=== PATIENT | female | born 1975 | race Caucasian/White ===

== ENCOUNTER 2016-10-12 08:33 | Outpatient (CLI) ==
[2013-08-04 14:28] VITALS: BMI 24.7
[2016-10-12 09:05] LABS: BASOPHILS % (AUTO) 0.6 % (0.0-3.0); EOSINOPHILS # (AUTO) 0.3 K/ul (0.0-0.7); EOSINOPHILS % (AUTO) 4.2 % (0.0-7.0); HEMATOCRIT 39.4 % (37.0-47.0); HEMOGLOBIN 13.8 g/dl (12.0-16.0); IMMATURE GRANULOCYTE % (AUTO) 0.2 % (0.0-5.0); LYMPHOCYTES # (AUTO) 2.9 K/uL (0.60-3.4); LYMPHOCYTES % (AUTO) 43.4 (10.0-50.0); MEAN CORPUSCULAR HEMOGLOBIN 30.8 pg (27.0-31.0); MEAN CORPUSCULAR VOLUME 87.9 fl (81.0-99.0); MONOCYTES # (AUTO) 0.3 K/uL (0.4-2.0); MONOCYTES % (AUTO) 4.7 (0-10); NEUTROPHILS # (AUTO) 3.1 K/ul (2.0-6.9); NEUTROPHILS % (AUTO) 46.9; PLATELET COUNT 223 10^3/uL (140-440); RED BLOOD COUNT 4.48 10^6/ul (4.20-5.40); WHITE BLOOD COUNT 6.62 K/ul (4.6-10.2)
[2016-10-12 09:42] LABS: ALBUMIN 3.6 g/dL (3.4-5.0); ALBUMIN/GLOBULIN RATIO 1.09; ANION GAP 11.9; BILIRUBIN,TOTAL 0.26 mg/dL (0.00-1.20); BUN/CREATININE RATIO 10.14; CALCIUM 9.3 mg/dL (8.2-10.2); CHOL/HDL RATIO 4.2 (4.5-5.5); CREATININE 0.69 mg/dL (0.60-1.30); POTASSIUM 3.9 mmol/L (3.5-5.10); TOTAL PROTEIN 6.9 g/dL (6.4-8.2)
== END 2016-10-12 08:34 | disposition home or self-care (01) ==
LOC: LAB 08:33
PROVIDERS: ATTEND Nurse Practitioner Family
DX: Z00.00 Encounter for general adult medical examination without abnormal findings (principal)
CPT/HCPCS: 36415; 80053; 80061; 84443; 85025

== ENCOUNTER 2016-10-31 08:32 | Outpatient (CLI) ==
[2013-08-04 14:28] VITALS: BMI 24.7
--- NOTE | 2016-11-06 11:50 | MAMMO ---
EXAM: Bilateral digital screening mammogram History: Screening Comparison: Bilateral mammogram 04/15/2015 Findings: MLO and CC views of bilateral breasts demonstrate scattered fibroglandular breast parench yma. There are no dominant masses, no suspicious microcalcifications and no architectural distortio ns Impression: Stable negative mammogram. Recommend followup routine screening mammography in 1 year. BIRADS 1
== END 2016-10-31 08:33 | disposition home or self-care (01) ==
LOC: RAD 08:32
PROVIDERS: ATTEND Nurse Practitioner Family
DX: Z12.31 Encounter for screening mammogram for malignant neoplasm of breast (principal)

== ENCOUNTER 2017-03-23 08:15 | Outpatient (RCR) ==
[2013-08-04 14:28] VITALS: BMI 24.7
--- NOTE | 2017-03-20 09:25 | RS.OPPTEV2 ---
Date of Note: 03/16/17 Visit #: 1 Date of Evaluation: 03/16/17 Payer Source: Medicaid Treatment Diagnosis: Low back pain History of Condition/Mechanism of Injury:: Patient reports a history of back and joint pain. 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 States she has never been able to complete a round of Outpatient Physical Therapy. States she is unable to tolerate the exercises/activities. Functional Limitations: Sleep, Self Care, ADL's, Reaching, Pushing, Pulling, Lifting, Carrying, Sitting, Standing, Bending, Squatting, Ambulation, Community Access/Integration Current Subjective/complaints:: Patient reports progressively worsening symptoms of back pain. States she was diagnosed with Degenerative Disc Diesease in 2010. States she has pain from her back to the arch of her feet. States her pain is usually a dull ache. When pain increases, states it feels like a lightening bolt. States pain comes and goes. Reports significant pain with the hip goes out of socket. States right hip is worse than the left. Reports frequent subluxation of the hip joints. Reports she consistently uses a cane in and outside of her home. Reports she has fallen twice in the last week due to her hips going out of socket when she gets up in the middle of the night. States she usually wears a heel lift in the right shoe, but she does not have it in today. States she cannot find anything that helps her pain unless she can sleep. Reports she gets approximately 3 hours of sleep per night. States she is scheduled to begin receiving injections to her low back on March 28. States she has been trying to walk at the track at the high school for exercise. Reports not having to use an assistive device when walking at the track. *Precautions: ALLERGIC TO LATEX AND ADHESIVE, HEAT Exacerbates symptoms* * Medical History Surgical History Comments:: Pain pump at right low back (for right hip pain) placed ~ 8 years ago. Smoking Status: Current every day smoker Patient's Goals: Her goal is to get relief of pain and stability at her low back and hips. Pain Assessment - Pain Description Pain Location: low back and legs Pain Description: Sharp, Dull, Aching Current Pain Intensity: 8/10 Worst Pain Intensity: 10/10 Functional Outcome Measure Oswestry LBP: 86 - G Codes & Severity Modifier G Codes & Modifier: NA Source of G Code score: NA Observation - Observation Posture: Forward Head, Rounded Shoulders, Decreased Lumbar Lordosis Gait - Gait Pattern Gait Comments: Patient ambulates without an assistive device. Demonstrates no observable gait deviations today in the department. - ROM Lumbar Flexion: Hand reach to feet Sidebending to Left: Reach to Lateral Joint Line Sidebending to Right: Reach to Lateral Joint Line Comments: Bilateral LE AROM and PROM is WFL's. Patient does demonstrate tightness in right anterior hip joint compared to the left. - Strength Trunk Lateral Flexion: 4 Good Trunk Rotation: 4 Good Comments: Bilateral hip ER and IR strength 4-/5, all else 4+/5 throughout LE's. - Special Tests Comments: Bilateral hip joints moved through all planes to end range. Long axis distraction applied as well. No popping or subluxation noted. Palpation Comments:: Patient reports tenderness with palpation to the lumbar paraspinals bilaterally. Demonstrates minimal to moderate increased muscle tone along the lumbar paraspinals. Additional Comments: Additional Comments: Right LE is longer in long sitting and supine. Bilateral SLR to 60+ degrees. Interventions - Exercise/Activities/Manual Therapy Exercises/Activities: No exercises given at evaluation Manual Therapy: NA - Charges Total Direct Minutes: 50 mins Total Treatment Time: 50 mins Procedures billed for this date of service:: Rosa Prabhakar X4 Assessment Assessment: Patient presents to therapy with a diagnosis of bilateral sciatica and lumbar degenerative disc disease. She reports progressive low back and hip pain. Describes hypermobility of hips and other joints. Scores 86 on Oswestry LBP scale. Reports very limited sleep and tolerance for activities due to pain. She demonstrates potential to benefit from strengthening exercises and activities to improve stability of the lumbar spine and LE's. Patient Education: Education of diagnosis, Body/Joint mechanics, Activity Modification, Education of Plan of Care Rehab Potential: Good Short Term Goals Goal #1: Pt compliant and independent with initial HEP. Goal to be met by: 04/02/17 Goal #2: Trunk strength 4+/5. Goal to be met by: 04/02/17 Goal #3: Bilateral hip IR and ER 4/5. Goal to be met by: 04/02/17 Civil Rights Representative Goals Goal #1: Pt knows HEP and to continue ex's to maintain functional level at D/C. Goal to be met by: 04/28/17 Goal #2: Score on Oswestry LBP scale improved to 66. Goal to be met by: 04/28/17 Goal #3: Pt able to sleep 6 hours without interruption for back/hip pain. Goal to be met by: 04/28/17 Goal #4: Pt able to perform ADL's with minimal difficulty or back/hip pain. Goal to be met by: 04/28/17 Plan - Treatment to be Provided Procedures: Therapeutic Exercises, Therapeutic Activity, Neuromuscular Rehab, Patient Education Modalities: Electrical Stimulation, Ultrasound/Phonophoresis, Cryotherapy, Hot Packs Other:: Pain Pump right lumbar region Do not use Ultrasound or Estim directly over the pump - Treatment Plan Frequency: 3 X week Duration: 4 weeks ORDER # VISITS AND/OR THROUGH DATE: 04/28/17 - Treatment Code (1) Low back pain Code(s): M54.5 - LOW BACK PAIN Qualifiers: Chronicity: unspecified Back pain laterality: unspecified Sciatica presence: unspecified whether sciatica present Qualified Code(s): M54.5 - Low back pain (2) Sciatica Code(s): M54.30 - SCIATICA, UNSPECIFIED SIDE Qualifiers: Laterality: bilateral Qualified Code(s): M54.31 - Sciatica, right side; M54.32 - Sciatica, left side (3) Lumbar degenerative disc disease Code(s): M51.36 - OTHER INTERVERTEBRAL DISC DEGENERATION, LUMBAR REGION Comments: M51.36
--- NOTE | 2017-03-21 08:37 | RS.CXNS ---
Date of scheduled appointment: 03/21/17 Type: Cancel (Patient called to cancel. States she overslept and does not feel well.)
--- NOTE | 2017-03-23 13:21 | RS.OPPTDN ---
Subjective Date of Note: 03/23/17 Visit #: 2 Date of Evaluation: 03/16/17 Payer Source: Medicaid Treatment Diagnosis: Low back pain Current Subjective/complaints:: Patient reports pain around 4/10 today. States she did a lot of work around her home yesterday. She reports her daughter has been diagnosised with Joel-Danlos syndrome and it is suspected that she has it also. During exercise patient reports she has has old shoulder injuries and has problems with shoulders dislocating as well and bilateral hip dislocation. *Precautions: ALLERGIC TO LATEX AND ADHESIVE, HEAT Exacerbates symptoms* * Pain Assessment - Pain Description Pain Location: low back and legs Pain Description: Dull, Aching Current Pain Intensity: 4/10 Interventions - Exercise/Activities/Manual Therapy Exercises/Activities: Isometric hip add, alt LE lifts, pelvic tilts. 3# wand for short overhead shoulder flexion while performing hip add with ball. Double LE lift with ball between knees. Isometric trunk rotation holding neutral position. SLR. Paitent education of dx, body mechanics, need for trunk stability exericse, and HEP. Patient given copies. Total minutes of Exercise: 30mins Manual Therapy: NA HOME EXERCISE PROGRAM: Isometric hip add, alt LE lifts, pelvic tilts, short trunk rotation, double LE lift in hook-lying with ball. - Objective Findings Observations,measurements,etc.: Patient is observed sitting on right foot with hip in full external rotation. She was in long sitting with ankles crossed during initial discussion prior to starting EX. At end of session, patient sat with right LE crossed over left with hip into full external rotation. Also, during rest period patient patient put both hands behind head with bilateral shoulders into full abduction and external rotation. Observations noted due to patients consistent reports of frequent multiple joint dislocations. - Charges Total Direct Minutes: 30mins Total Treatment Time: 32mins Procedures billed for this date of service:: EX2 Assessment: Patient reports she will work on HEP and wants to progress. Patient reports frequent hip and occasional shoulder joint dislocation, but patient rests in rotational positions throughout therapy visit that should be difficult and avoided. Patients movement patterns and ambulation appear normal and no distress is noted. Patient Education: Education of diagnosis, Body/Joint mechanics, Home Exercise Program Patient demonstrates compliance with HEP?: Yes Short Term Goals Goal #1: Pt compliant and independent with initial HEP. Goal to be met by: 04/02/17 Progress towards Goal:: Progressing Goal #2: Trunk strength 4+/5. Goal to be met by: 04/02/17 Goal #3: Bilateral hip IR and ER 4/5. Goal to be met by: 04/02/17 [facility] Goals Goal #1: Pt knows HEP and to continue ex's to maintain functional level at D/C. Goal to be met by: 04/28/17 Goal #2: Score on Oswestry LBP scale improved to 66. Goal to be met by: 04/28/17 Goal #3: Pt able to sleep 6 hours without interruption for back/hip pain. Goal to be met by: 04/28/17 Goal #4: Pt able to perform ADL's with minimal difficulty or back/hip pain. Goal to be met by: 04/28/17 Plan PLAN OF CARE EXPIRES ON:: 04/28/17 ORDER # VISITS AND/OR THROUGH DATE: 04/28/17 PLAN: Progress Exercises
== END 2017-03-24 ==
PROVIDERS: ATTEND Pain Medicine Interventional Pain Medicine
DX: M54.31 Sciatica, right side (principal); M54.32 Sciatica, left side; M51.36 Other intervertebral disc degeneration, lumbar region

== ENCOUNTER 2017-05-03 09:45 | Outpatient (CLI) ==
[2016-10-31 08:35] VITALS: BMI 24.7
[2017-05-03 10:19] LABS: BILIRUBIN,URINE Negative (NEGATIVE); KETONES,URINE Negative (NEGATIVE); LEUKOCYTE ESTERASE ,URINE Negative (NEGATIVE); NITRITE,URINE Negative (NEGATIVE); PROTEIN,URINE Negative (NEGATIVE); URINE, BLOOD 1+ (NEGATIVE)
[2017-05-03 10:22] LABS: ADD URINE MICROSCOPIC YES
[2017-05-03 10:23] LABS: BACTERIA,URINE 2+ (NOT PRESENT)
--- NOTE | 2017-05-03 10:25 | CT ---
Exam: CT of the thoracic spine without intravenous contrast. Comparison: CT of the chest abdomen pelvis performed on 08/04/2013. Reason for exam: Pain in thoracic spine. FINDINGS: No acute fracture or listhesis. The vertebral body and intervertebral body disc space hei ghts are well maintained. There is a normal appearing thoracic kyphotic curve. Degenerative disease is seen in the lower cervical spine. Intrathecal catheter is seen adjacent to the T10 vertebral bod y. There is minimal left basilar atelectasis in the partially imaged lung bases. Similar appearing scarring changes are seen in the right apex. Impression: 1. No acute fracture or listhesis in the thoracic spine. 2. Intrathecal catheter is seen at the T10 vertebral level.
== END 2017-05-03 09:46 | disposition home or self-care (01) ==
LOC: RAD 09:45
PROVIDERS: ATTEND Nurse Practitioner Family
DX: M54.6 Pain in thoracic spine (principal); E87.6 Hypokalemia
CPT/HCPCS: 36415; 81001; 84132; 87086

== ENCOUNTER 2017-05-11 14:41 | Outpatient (CLI) ==
[2016-10-31 08:35] VITALS: BMI 24.7
[2017-05-11 17:13] LABS: ALBUMIN 3.2 g/dL (3.4-5.0); ALBUMIN/GLOBULIN RATIO 0.82; ANION GAP 13.1; BILIRUBIN,TOTAL 0.23 mg/dL (0.00-1.20); BUN/CREATININE RATIO 4.28; CALCIUM 9.6 mg/dL (8.2-10.2); CHOL/HDL RATIO 5.4 (4.5-5.5); CREATININE 0.7 mg/dL (0.60-1.30); POTASSIUM 3.1 mmol/L (3.5-5.10); TOTAL PROTEIN 7.1 g/dL (6.4-8.2)
== END 2017-05-11 14:42 | disposition home or self-care (01) ==
LOC: LAB 14:41
PROVIDERS: ATTEND Nurse Practitioner Family
DX: E78.5 Hyperlipidemia, unspecified (principal); E78.1 Pure hyperglyceridemia; E87.6 Hypokalemia; R42 Dizziness and giddiness
CPT/HCPCS: 36415; 80053; 80061

== ENCOUNTER 2017-05-30 07:59 | Outpatient (CLI) ==
[2016-10-31 08:35] VITALS: BMI 24.7
[2017-05-30 08:44] LABS: ALBUMIN 3.1 g/dL (3.4-5.0); ALBUMIN/GLOBULIN RATIO 0.91; ANION GAP 14.2; BILIRUBIN,TOTAL 0.19 mg/dL (0.00-1.20); BUN/CREATININE RATIO 5.88; CALCIUM 9.3 mg/dL (8.2-10.2); CHOL/HDL RATIO 4.1 (4.5-5.5); CREATININE 0.68 mg/dL (0.60-1.30); POTASSIUM 3.2 mmol/L (3.5-5.10); TOTAL PROTEIN 6.5 g/dL (6.4-8.2)
== END 2017-05-30 08:00 | disposition home or self-care (01) ==
LOC: LAB 07:59
PROVIDERS: ATTEND Nurse Practitioner Family
DX: E87.6 Hypokalemia (principal); R42 Dizziness and giddiness; E78.1 Pure hyperglyceridemia; E78.5 Hyperlipidemia, unspecified
CPT/HCPCS: 36415; 80053; 80061

== ENCOUNTER 2017-06-01 11:26 | Outpatient (CLI) ==
[2016-10-31 08:35] VITALS: BMI 24.7
--- NOTE | 2017-06-01 12:56 | CT ---
EXAM: CT BRAIN HISTORY: Syncope TECHNIQUE: CT brain without intravenous contrast. 5-mm axial sections with Reformations. COMPARISON: None FINDINGS: Brain is unremarkable without distinct evidence of hemorrhage or large vessel distribution recent is chemic infarction. There is no suggestion of acute hydrocephalus or subdural fluid collection. No m ass or mass effect. Cranium is within normal limits. Mastoid air cells are aerated. The visualized paranasal sinuses a re clear. IMPRESSION: No acute intracranial process.
== END 2017-06-01 11:27 | disposition home or self-care (01) ==
LOC: RAD 11:26
PROVIDERS: ATTEND Nurse Practitioner Family
DX: R55 Syncope and collapse (principal); R42 Dizziness and giddiness; R60.9 Edema, unspecified; J02.9 Acute pharyngitis, unspecified
CPT/HCPCS: 36415; 83880; 87651; 87880

== ENCOUNTER 2017-06-13 12:37 | Outpatient (CLI) ==
[2016-10-31 08:35] VITALS: BMI 24.7
[2017-06-13 13:10] LABS: FLU INTERNAL QC INTERNAL QC VALID; RAPID FLU A NEGATIVE (NEGATIVE); RAPID FLU B NEGATIVE (NEGATIVE)
== END 2017-06-13 12:38 | disposition home or self-care (01) ==
LOC: LAB 12:37
PROVIDERS: ATTEND Nurse Practitioner Family
DX: R05 Cough (principal); E87.6 Hypokalemia
CPT/HCPCS: 36415; 84132; 87651; 87804; 87880

== ENCOUNTER 2017-09-19 08:31 | Outpatient (CLI) ==
[2016-10-31 08:35] VITALS: BMI 24.7
== END 2017-09-19 08:32 | disposition home or self-care (01) ==
LOC: LAB 08:31
PROVIDERS: ATTEND Nurse Practitioner Family
DX: M79.643 Pain in unspecified hand (principal); M79.89 Other specified soft tissue disorders; Z86.39 Personal history of other endocrine, nutritional and metabolic disease
CPT/HCPCS: 36415; 84132; 85651; 86140

== ENCOUNTER 2017-11-27 10:19 | Outpatient (CLI) ==
[2016-10-31 08:35] VITALS: BMI 24.7
== END 2017-11-27 10:20 | disposition home or self-care (01) ==
LOC: RHC-LAB 10:19
PROVIDERS: ATTEND Nurse Practitioner Family
DX: I10 Essential (primary) hypertension (principal); E87.6 Hypokalemia; R00.2 Palpitations; E78.1 Pure hyperglyceridemia; E78.5 Hyperlipidemia, unspecified
CPT/HCPCS: 36415; 80053; 80061; 84443; 85025

== ENCOUNTER 2018-01-10 13:05 | Outpatient (CLI) | payer OTHER ==
[2016-10-31 08:35] VITALS: BMI 24.7
== END 2018-01-10 13:06 | disposition home or self-care (01) ==
LOC: RHC-LAB 13:05
PROVIDERS: ATTEND Nurse Practitioner Family
DX: I10 Essential (primary) hypertension (principal); E78.5 Hyperlipidemia, unspecified
CPT/HCPCS: 36415; 80053; 83735

== ENCOUNTER 2018-01-23 10:34 | Outpatient (CLI) ==
[2016-10-31 08:35] VITALS: BMI 24.7
== END 2018-01-23 10:35 | disposition home or self-care (01) ==
LOC: LAB 10:34
PROVIDERS: ATTEND Emergency Medicine
DX: N30.01 Acute cystitis with hematuria (principal); I10 Essential (primary) hypertension
CPT/HCPCS: 36415; 80053; 81001; 84436; 84443; 84479; 85007; 85025; 87086

== ENCOUNTER 2018-06-21 | Outpatient (CLI) | END 2018-06-21 06:30 | disposition home or self-care (01) | DX: Q79.6 Ehlers-Danlos syndromes (principal) ==

== ENCOUNTER 2018-11-05 12:52 | Outpatient (CLI) | payer OTHER ==
[2016-10-31 08:35] VITALS: BMI 24.7
== END 2018-11-05 12:53 | disposition home or self-care (01) ==
LOC: RHC-LAB 12:52
PROVIDERS: ATTEND Nurse Practitioner Family
DX: M25.50 Pain in unspecified joint (principal); G89.29 Other chronic pain; I10 Essential (primary) hypertension; E03.9 Hypothyroidism, unspecified; E78.5 Hyperlipidemia, unspecified; E78.1 Pure hyperglyceridemia
CPT/HCPCS: 36415; 80053; 80061; 84443; 85025; 85651